=== PATIENT | male | born 1955 | race Caucasian/White ===

== ENCOUNTER → 2017-07-05 | Outpatient (CLI) | payer MEDICARE ==
[~2017-07-05] MED LIST: ATORVASTATIN CA10 M1 PO; BACTRIM DS 8001 TAB PO; BENADRYL 25MG C25 MG PO; CIPRO 500MG TA500 MG PO; CIPROFLOXACIN500 MG PO; CLONAZEPAM 1MG T1 MG PO; CLONAZEPAM0.5 M1 PO; CLONAZEPAM0.5 MG PO; EPI-PEN1 MG/M1 MR; HUMULIN 70100 UNITS/ SC; HYDROCODONE-APA1 TA1 PO; KEFLEX 500MG.500 MG PO; LISINOPRIL 5MG T5 MG NG; LISINOPRIL 5MG T5 MG PO; LOPRESSOR50 MG OR; LORTAB 480 ML480 ML PO; LORTAB 5/500 501 TAB GT; MAGMTHWSH PO; MEDROL 4MG. DOSE4 MG PO; METFORMIN 500M500 M1 PO; METFORMIN500 MG PO; MORPHINE 2MG.2 MG/ML IM; NORCO 325 MG-51 TAB PO; PERCOCET 5/3251 EACH PO; ROXANOL20 MG/ML SL; SEPTRA DS 800 M1 TAB PO; SERTRALINE 100100 MG PO; SERTRALINE100 MG PO; SYNTHROID 0.0.075 MG PO; SYNTHROID 0.1M0.1 MG PO; TESSALON PERLE100 M1 PO; ULTRAM 50 MG TA50 MG PO; VENTOLIN H0.09 MG/AC IH; VIBRA-TABS100 MG PO; ZANTAC 300300 M1 PO; ZITHROMAX Z PA250 MG PO; ZITHROMAX Z-PA250 M1 PO
[2017-07-05 16:00] LABS: HEMOGLOBIN 15.6 g/dL (14.1-18.0); LYMPH # 1.4 K/mm3 (0.7-4.5); LYMPH % 13.9 % (10-50)
[2017-07-05 16:28] LABS: AMPHETAMINES/METAMPHETAMINES NEGATIVE ng/mL (<1000)
[2017-07-05 17:19] LABS: BUN 15 mg/dL (7-18)
[2017-07-05 17:58] LABS: GFR (ESTIMATED) 76 ML/MIN (>60)
[2017-07-07 09:37] LABS: Microalbumin, Urine 41.1 ug/mL (Not Estab.)
== END ==
LOC: LAB 15:39
PROVIDERS: Nurse Practitioner Family
DX: E11.9 Type 2 diabetes mellitus without complications (principal); E78.5 Hyperlipidemia, unspecified; C14.0 Malignant neoplasm of pharynx, unspecified; Z79.899 Other long term (current) drug therapy
CPT/HCPCS: G0480

== ENCOUNTER 2017-10-28 10:40 | Observation (INO) | payer MEDICARE ==
[~2017-10-28] VITALS: Ht 175.3 cm; Wt 104.9 kg
[2017-10-28 10:41] VITALS: BP 204/119
[2017-10-28] MEDS ORDERED: LISINOPRIL2.5 M1 PO (10:45)
--- OUTSIDE RECORDS SUMMARY | 2017-10-28 11:02 | External Medical Summary Rpt | CCD ---
Author Author , SAMANTHA SINGH Address Unknown Phone Support Name Relationship Address Phone LANE, Next Of Kin Krystyna JARQUIN [address] [phone] [place] [address] Purpose Continuity of Care Document - 02-08-2013 through 2016 Allergies, Adverse Reactions, Alerts Type Drug Allergy Adverse Reaction to Substance Substance Reaction Severity Penicillin Unknown Unknown Penicillin V Unknown Unknown Medications Na ND Rx Da Fi Fi Am Da Di Ph RX Ph St me C No te ll ll ou ys ag ar # ys at rm s nt no ma ic us Or Da si cy ia de te s n re d Me 00 04 0 No th 00 -1 yl 90 0- Lo pr 19 20 ng ed 00 13 er ni 9 so Ac lo ti ne ve So d Rouse cc in a DI 00 04 0 No PH 40 -1 EN 92 0- Lo HY [address] 03 13 er AM 1 IN Ac E ti 50 ve MG /M L SY RN G CE 00 03 0 No FT 78 -1 RI 19 4- Lo AX 32 20 ng ON 89 13 er E 5 1 Ac GM ti ve AL LI 63 03 0 No DO 32 -1 CA 30 4- Lo IN 20 20 ng E 11 13 er HC 0 L Ac 1% ti ve AL Vital Signs 03-07-2013 06:08 Name Value Interpretat Reference Comment ion Range BP 103 mm[Hg] Diastolic BP Systolic 144 mm[Hg] Heart 75 /min Rate/Pulse O2% 96 % Respiratory 20 /min Rate 03-07-2013 04:59 Name Value Interpretat Reference Comment ion Range BP 81 mm[Hg] Diastolic BP Systolic 132 mm[Hg] Heart 86 /min Rate/Pulse O2% 92 % Respiratory 20 /min Rate 02-08-2013 22:39 Name Value Interpretat Reference Comment ion Range BP 88 mm[Hg] Diastolic BP Systolic 146 mm[Hg] Heart 91 /min Rate/Pulse O2% 95 % Respiratory 20 /min Rate Results Labs Lab Lab Date Result Refere Interp Status Commen Order Detail nces retati t Range on Hemoglobin A1c measurement (09-30-2017 11:00) Hemoglo 7.8 % 0.0-7.0 complet bin A1c 017 ed 11:00 Comment: < 6% NON-DIABETIC LEVEL Comment: < 7% CONTROLLED DIABETIC LEVEL Comment: > 8% POORLY CONTROLLED DIABETIC LEVEL Serum or plasma thyroid stimulating horm (09-30-2017 11:00) Serum = 3.36 0.358-3 complet or 017 uIU/ml .740 ed plasma 11:00 thyroid stimula ting horm Lipid profile (09-30-2017 11:00) Total = 147 < 200 complet cholest 017 mg/dL ed elisabeth 11:00 measure ment Serum = 16.8 0-40 complet or 017 ed plasma 11:00 cholest elisabeth in VLDL louann Serum = 84 30-200 complet or 017 mg/dL ed plasma 11:00 triglyc eride measure ment Serum = 83.2 0-130 complet or 017 mg/dL ed plasma 11:00 cholest elisabeth in LDL measu Serum = 47.0 40-60 complet or 017 MG/DL ed plasma 11:00 cholest elisabeth in HDL measu Serum or plasma free thyroxine (T4) louann (09-30-2017 11:00) Serum = 1.19 0.76-1. complet or 017 ng/dL 46 ed plasma 11:00 free thyroxi ne (T4) louann Comprehensive metabolic panel (09-30-2017 11:00) Serum = 9.9 8.5-10. complet or 017 mg/dL 1 ed plasma 11:00 calcium measure ment (mas Serum = 16 7-18 complet or 017 mg/dL ed plasma 11:00 urea nitroge n measure men Serum = 0.7 0.2-1.0 complet or 017 mg/dL ed plasma 11:00 total bilirub in measure m Serum = 4.1 3.4-5.0 complet or 017 gm/dL ed plasma 11:00 albumin measure ment (mas Serum = 1.1 1.1-1.8 complet or 017 ed plasma 11:00 albumin /globul in mass ra Serum = 77 46-116 complet or 017 U/L ed plasma 11:00 alkalin e phospha tase michelle Protein = 8.0 6.4-8.2 complet total 017 gm/dL ed ser/jovanny 11:00 s ALT = 34 12-78 complet (SGPT) 017 U/L ed ser/jovanny 11:00 s Serum = 21 15-37 complet or 017 U/L ed plasma 11:00 asparta te aminotr ansfera Serum = 133 136-145 complet sodium 017 mmoL/L ed measure 11:00 ment Serum = 4.9 3.5-5.1 complet potassi 017 mmoL/L ed um 11:00 measure ment Serum = 229 74-106 complet or 017 mg/dL ed plasma 11:00 glucose measure ment (mas Serum = 3.9 1.3-3.2 complet globuli 017 gm/dL ed n 11:00 measure ment (mass/v olume) Estimat = 62 >60 complet ed 017 ML/MIN ed glomeru 11:00 lar filtrat ion rate (GF Comment: REFERENCE RANGE: >60 ML/MIN/1.73 SQUARE METERS Comment: If this patient is -[place], then multiply the Comment: result by 1.210. Serum = 1.2 0.70-1. complet or 017 mg/dL 30 ed plasma 11:00 creatin ine measure ment ( Carbon = 20 21.0-32 complet dioxide 017 mmoL/L .0 ed 11:00 measure ment Serum = 101 98-107 complet or 017 mmoL/L ed plasma 11:00 chlorid e measure ment (mo CBC w auto diff (09-30-2017 11:00) Blood = 14.6 14.1-18 complet hemoglo 017 g/dL .0 ed bin 11:00 measure ment (mass/v olum Blood = 45.6 42.0-52 complet hematoc 017 % .0 ed rit 11:00 (volume fractio n) Granulo = 75.6 37.0-80 complet cyte 017 % .0 ed percent 11:00 age Blood = 8.4 1.3-8.0 complet granulo 017 K/mm3 ed cytes 11:00 automat ed count (numb Automat = 3.6 % 0.1-12. complet ed 017 0 ed blood 11:00 eosinop hils/10 0 leukocy t Automat = 0.4 0.0-0.4 complet ed 017 K/mm3 ed blood 11:00 eosinop hil count Baso % = 0.8 % 0.1-2.0 complet 017 ed 11:00 Automat = 0.1 0-0.2 complet ed 017 K/MM3 ed blood 11:00 basophi l count (count/ vo Blood = 11.1 4.8-10. complet leukocy 017 K/MM3 8 ed janna 11:00 count (number /volume ) Automat = 13.6 11.5-17 complet ed 017 % .5 ed erythro 11:00 cyte distrib ution width Red = 5.41 4.6-6.2 complet blood 017 M/mm3 ed cell 11:00 count Blood = 487 142-424 complet platele 017 K/mm3 ed t count 11:00 Automat = 8.6 7.4-10. complet ed 017 fl 4 ed blood 11:00 platele t mean volume michelle [place] % = 8.8 % 1.7-9.3 complet 017 ed 11:00 Absolut = 1.0 0.1-1.0 complet e 017 K/mm3 ed monocyt 11:00 e count Automat = 84.2 82.2-97 complet ed 017 fl .8 ed erythro 11:00 cyte mean corpusc ular v Automat = 32.1 31.8-35 complet ed 017 g/dl .4 ed erythro 11:00 cyte mean corpusc ular h Mean = 27.0 27-31.2 complet corpusc 017 pg ed ular 11:00 hemoglo bin (MCH) determ Lymphoc = 11.2 10-50 complet yte 017 % ed count, 11:00 blood, automat ed Absolut = 1.2 0.7-4.5 complet e 017 K/mm3 ed lymphoc 11:00 yte count Hemoglobin A1c in Blood (09-30-2017 11:00) Hemoglo 7.8 % 0.0% High complet bin A1c 017 - ed in 11:00 7.0% Blood Hemoglobin A1c in Blood (07-05-2017 10:40) Hemoglo 7.1 % 0.0% High complet bin A1c 017 - ed in 10:40 7.0% Blood Drugs identified in Urine by Screen method (07-05-2017 10:40) Ampheta NEGATIV <1000 complet mine 017 E ed [Presen 10:40 ce] in Urine by Screen method 11-Hydr NEGATIV <50 complet oxy 017 E ed delta-9 10:40 tetrahy drocann abinol [Presen ce] in Unspeci fied specime n COMPREHENSIVE METABOLIC PANEL (03-07-2013 04:15) Glucose 396 74-106 complet 013 mg/dL ed Bld-mCn 04:15 c BUN 24 7-18 complet Bld-mCn 013 mg/dL ed c 04:15 Creat 1.3 0.8-1.3 complet SerPl-m 013 mg/dL ed Cnc 04:15 ESTIMAT 100 50-200 complet ED 013 ML/MIN ed CREATIN 04:15 INE CLEARAN CE GFR 57 Greater complet (ESTIMA 013 ML/MIN than ed DESMOND) 04:15 60 Sodium 137 136-145 complet SerPl-s 013 mmoL/L ed Cnc 04:15 Potassi 4.1 3.5-5.1 complet um 013 mmoL/L ed SerPl-s 04:15 Cnc Chlorid 98 98-107 complet e 013 mmoL/L ed SerPl-s 04:15 Cnc CO2 27 21.0-32 complet SerPl-s 013 mmoL/L .0 ed Cnc 04:15 Calcium 04-10-2 9.4 8.5-10. complet 013 mg/dL 1 ed SerPl-m 04:15 Cnc Prot 10-2 7.4 6.4-8.2 complet SerPl-m 013 gm/dL ed Cnc 04:15 Albumin 0410-2 3.9 3.4-5.0 complet 013 gm/dL ed SerPl-m 04:15 Cnc Globuli 10-2 3.5 1.3-3.2 complet n 013 gm/dL ed Ser-mCn 04:15 c Albumin 10-2 1.1 UNK 1.1-1.8 complet /Glob 013 ed SerPl-m 04:15 Rto Bilirub 10-2 0.4 0.2-1.0 complet 013 mg/dL ed SerPl-m 04:15 Cnc AST 10-2 33 U/L 15-37 complet SerPl-c 013 ed Cnc 04:15 ALT 10-2 64 U/L 30-65 complet SerPl-c 013 ed Cnc 04:15 ALP 10-2 119 U/L 50-136 complet SerPl-c 013 ed Cnc 04:15 CBC with AUTO DIFF (03-07-2013 04:15) WBC # -10-2 10.1 4.8-10. complet Bld 013 K/MM3 8 ed Auto 04:15 RBC # 0410-2 5.76 4.6-6.2 complet Bld 013 M/mm3 ed Auto 04:15 Hgb 10-2 15.8 14.1-18 complet Bld-mCn 013 g/dL .0 ed c 04:15 Hct Fr 10-2 48.4 % 42.0-52 complet Bld 013 .0 ed 04:15 MCV RBC 10-2 84.1 fl 82.2-97 complet 013 .8 ed 04:15 MCH RBC 04-10-2 27.5 pg 27-31.2 complet Qn 013 ed Auto 04:15 MEAN 0410-2 32.7 31.8-35 complet CORPUSC 013 g/dl .4 ed ULAR 04:15 HGB CONC RDW RBC 10-2 14.0 % 11.5-17 complet Auto 013 .5 ed 04:15 Platele -10-2 444 142-424 complet t Bld 013 K/mm3 ed Ql 04:15 Manual MEAN 10-2 6.8 fl 7.4-10. complet PLATELE 013 4 ed T 04:15 VOLUME Granulo -10-2 60.2 % 37.0-80 complet cytes 013 .0 ed Fr Bld 04:15 Auto LYMPH % 10-2 28.9 % 10-50 complet 013 ed 04:15 Monocyt -10-2 8.8 % 1.7-9.3 complet es Fr 013 ed Bld 04:15 Auto Eosinop -10-2 1.7 % 0.1-12. complet hil Fr 013 0 ed Bld 04:15 Auto Basophi 10-2 0.4 % 0.1-2.0 complet ls Fr 013 ed Bld 04:15 Auto Granulo -10-2 6.1 1.3-8.0 complet cytes # 013 K/mm3 ed Bld 04:15 Auto Lymphoc 10-2 2.9 0.7-4.5 complet ytes Fr 013 K/mm3 ed Bld 04:15 Auto Monocyt -10-2 0.9 0.1-1.0 complet es # 013 K/mm3 ed Bld 04:15 Auto Eosinop -10-2 0.2 0.0-0.4 complet hil # 013 K/mm3 ed Bld 04:15 Auto Basophi -10-2 0.0 0-0.2 complet ls # 013 K/MM3 ed Bld 04:15 Auto Encounters Encounter Start End Date Code Location Performer Type Date Emergency MALIKA Mora MD (ER) 3 04:20 3 06:27 [facility] Emergency MALIKA Mora MD (ER) 3 21:38 3 22:39 [facility]
--- OUTSIDE RECORDS SUMMARY | 2017-10-28 11:02 | External Medical Summary Rpt | CCD ---
Author Author , SAMANTHA SINGH Address Unknown Phone [email or web address] Support Name Relationship Address Phone LANE, Next Of Kin Krystyna JARQUIN [address] [phone] [place] [address] Purpose Continuity of Care Document - 02-08-2013 [...] SQUARE METERS Comment: If this patient is -[place], then multiply the Comment: result by 1.210. [...] blood 11:00 platele t mean volume michelle Sanders % = 8.8 % 1.7-9.3 complet 017 [...] Mora MD (ER) 3 04:20 3 06:27 [facility] Emergency MALIKA Mora MD (ER) 3 21:38 3 22:39 [facility]
--- OUTSIDE RECORDS SUMMARY | 2017-10-28 11:02 | External Medical Summary Rpt | CCD ---
Author Author [employer] Organization [employer] Address Unknown Phone Unavailable Purpose Continuity of Care Document - through 2016
--- OUTSIDE RECORDS SUMMARY | 2017-10-28 11:02 | External Medical Summary Rpt | CCD ---
Author Author , SAMANTHA SINGH Address Unknown Phone [email or web address] Immunization Name Date Rout CVX Reac Dose Comm Prov Is Faci e tion ent ider Refu lity Give sed n Infl 10-0 Intr 150 0.5 Hist GSHA No GSHA uenz 6-20 amus mL oric NE NE a 17 cula al Quad r Info Inj rmat ion - Sour ce Unsp ecif ied
--- OUTSIDE RECORDS SUMMARY | 2017-10-28 11:02 | External Medical Summary Rpt | CCD ---
Author Author , SAMANTHA SINGH Address Unknown Phone [email or web address] Immunization Name Date Rout CVX Reac Dose Comm Prov Is Faci e tion ent ider Refu lity Give sed n Infl 10-0 Intr 150 0.5 Hist GSHA No GSHA uenz 6-20 amus mL oric NE NE a 17 cula al Quad r Info Inj rmat ion - Sour ce Unsp ecif ied
--- OUTSIDE RECORDS SUMMARY | 2017-10-28 11:03 | External Medical Summary Rpt ---
Author Author SAMANTHA Mendieta, [employer] Organization [employer] Address Unknown Phone Unavailable Results Hemoglobin A1c in Blood Observa Value Referen Units Interpr Notes Date tion ce etation Range Hemoglo 7.8 0.0 - % High < 6% Sep 30 bin A1c 7.0 NON-BRAXTON 2017 in [facility] 11:00 Blood LEVEL< AM 7% CONTROL LED DIABETI C LEVEL> 8% POORLY CONTROL LED DIABETI C LEVEL Comprehensive metabolic 2000 panel in Serum or Plasma Observa Value Referen Units Interpr Notes Date tion ce etation Range Albumin/G 1.1 - 1.8 No Normal No Sep 30 lobulin informati informati 2016 [Mass on in on in 11:00 AM ratio] in source source Serum or data data Plasma Albumin 3.4 - 5.0 gm/dL Normal No Sep 30 [Mass/vol informati 2016 ume] in on in 11:00 AM Serum or source Plasma data Alkaline 46 - 116 U/L Normal No Sep 30 phosphata informati 2016 se on in 11:00 AM [Enzymati source c data activity/ volume] in Serum or Plasma Bilirubin 0.2 - 1.0 mg/dL Normal No Sep 30 .total informati 2016 [Mass/vol on in 11:00 AM ume] in source Serum or data Plasma Urea 7 - 18 mg/dL Normal No Sep 30 nitrogen informati 2016 [Mass/vol on in 11:00 AM ume] in source Serum or data Plasma Calcium 8.5 - mg/dL Normal No Sep 30 [Mass/vol 10.1 informati 2016 ume] in on in 11:00 AM Serum or source Plasma data Chloride 98 - 107 mmoL/L Normal No Sep 30 [Moles/vo informati 2017 lume] in on in 11:00 AM Serum or source Plasma data Carbon 21.0 - mmoL/L Low No Sep 30 dioxide, 32.0 informati 2016 total on in 11:00 AM [Moles/vo source lume] in data Serum or Plasma Creatinin 0.70 - mg/dL Normal No Sep 30 e 1.30 inform2016 [Mass/vol on in 11:00 AM ume] in source Serum or data Plasma Estimated >60 ML/MIN No REFERENCE Sep 3 informati RANGE: 2017 glomerula on in >60 11:00 AM r source ML/MIN/1. filtratio data 73 SQUARE n rate METERSIf (GF this patient is -A merican, then multiply theresult by 1.210. Globulin 1.3 - 3.2 gm/dL High No Sep 30 [Mass/vol informati 2016 ume] in on in 11:00 AM Serum source data Glucose 74 - 106 mg/dL High No Sep 30 [Mass/vol informati 2016 ume] in on in 11:00 AM Serum or source Plasma data Potassium 3.5 - 5.1 mmoL/L Normal No Sep 30 inform2016 [Moles/vo on in 11:00 AM lume] in source Serum or data Plasma Sodium 136 - 145 mmoL/L Low No Sep 30 [Moles/vo informati 2016 lume] in on in 11:00 AM Serum or source Plasma data Aspartate 15 - 37 U/L Normal No Sep 302016 aminotran on in 11:00 AM sferase source [Enzymati data c activity/ volume] in Serum or Plasma Alanine 12 - 78 U/L Normal No Sep 30 aminotran 2016 sferase on in 11:00 AM [Enzymati source c data activity/ volume] in Serum or Plasma Protein 6.4 - 8.2 gm/dL Normal No Sep 30 [Mass/vol informati 2016 ume] in on in 11:00 AM Serum or source Plasma data Thyroxine (T4) free [Mass/volume] in Serum or Plasma Observa Value Referen Units Interpr Notes Date tion ce etation Range Thyroxine 0.76 - ng/dL Normal No Sep 30 (T4) 1.46 informati 2017 free on in 11:00 AM [Mass/vol source ume] in data Serum or Plasma Lipid 1996 panel in Serum or Plasma Observa Value Referen Units Interpr Notes Date tion ce etation Range Cholester < 200 mg/dL No No Sep 3 ol informati informati 2016 [Moles/vo on in on in 11:00 AM lume] in source source Unspecifi data data ed specimen Cholester 40 - 60 MG/DL Normal No Nov 3 ol in HDL informati 2017 on in 11:00 AM [Mass/vol source ume] in data Serum or Plasma Cholester 0 - 130 mg/dL Normal No Sep 3 ol in LDL 2016 on in 11:00 AM [Mass/vol source ume] in data Serum or Plasma by calculati on Triglycer 30 - 200 mg/dL Normal No Sep 30 selma 2016 [Moles/vo on in 11:00 AM lume] in source Serum or data Plasma Cholester 0 - 40 No Normal No Sep 3 ol in informati 2017 VLDL on in on in 11:00 AM [Mass/vol source source ume] in data data Serum or Plasma Thyrotropin [Units/volume] in Serum or Plasma Observa Value Referen Units Interpr Notes Date tion ce etation Range Thyrotrop 0.358 - uIU/ml Normal No Sep 3 in 3.740 2016 [Units/vo on in 11:00 AM lume] in source Serum or data Plasma CBC W Auto Differential panel in Blood Observa Value Referen Units Interpr Notes Date tion ce etation Range Basophils 0 - 0.2 K/MM3 Normal No Sep 3 2016 [#/volume on in 11:00 AM ] in source Blood by data Automated count Basophils 0.1 - 2.0 % Normal No Sep 3 /100 2016 leukocyte on in 11:00 AM s in source Blood by data Automated count Eosinophi 0.0 - 0.4 K/mm3 Normal No Sep 30 ls 2016 [#/volume on in 11:00 AM ] in source Blood by data Automated count Eosinophi 0.1 - % Normal No Sep 30 ls/100 12.0 2016 leukocyte on in 11:00 AM s in source Blood by data Automated count Granulocy 1.3 - 8.0 K/mm3 High No Sep 3 janna 2016 [#/volume on in 11:00 AM ] in source Blood by data Automated count Granulocy 37.0 - % Normal No Sep 30 janna/100 80.0 2016 leukocyte on in 11:00 AM s in source Blood by data Automated count Hematocri 42.0 - % Normal No Sep 30 t [Volume 52.0 2016 on in 11:00 AM Fraction] source of Blood data Hemoglobi 14.1 - g/dL Normal No Nov 3 n 18.0 inform2016 [Mass/vol on in 11:00 AM ume] in source Blood data Lymphocyt 0.7 - 4.5 K/mm3 Normal No Sep 3 es 2016 [#/volume on in 11:00 AM ] in source Unspecifi data ed specimen by Automated count Lymphocyt 10 - 50 % Normal No Sep 3 es 2016 [#/volume on in 11:00 AM ] in source Unspecifi data ed specimen by Automated count Erythrocy 27 - 31.2 pg Normal No Sep 3 te mean 2016 corpuscul on in 11:00 AM ar source hemoglobi data n [Entitic mass] Erythrocy 31.8 - g/dl Normal No Sep 3 te mean 35.4 2016 corpuscul on in 11:00 AM ar source hemoglobi data n concentra tion [Mass/vol ume] by Automated count Erythrocy 82.2 - fl Normal No Sep 3 te mean 97.8 2016 corpuscul on in 11:00 AM ar volume source [Entitic data volume] by Automated count Monocytes 0.1 - 1.0 K/mm3 Normal No Sep 3 2016 [#/volume on in 11:00 AM ] in source Blood by data Automated count Monocytes 1.7 - 9.3 % Normal No Sep 3 /100 2016 leukocyte on in 11:00 AM s in source Blood by data Automated count Platelet 7.4 - fl Normal No Sep 3 mean 10.4 2016 volume on in 11:00 AM [Entitic source volume] data in Blood by Automated count Platelets 142 - 424 K/mm3 High No Sep 3 2016 [#/volume on in 11:00 AM ] in source Blood data Erythrocy 4.6 - 6.2 M/mm3 Normal No Sep 3 janna 2016 [#/volume on in 11:00 AM ] in source Amniotic data fluid Erythrocy 11.5 - % Normal No Sep 3 te 17.5 2016 distribut on in 11:00 AM ion width source [Entitic data volume] by Automated count Leukocyte 4.8 - K/MM3 High No Sep 3 s 10.8 inform2016 [#/volume on in 11:00 AM ] in source Blood data Benzodiazepines Confirm, Urine Observa Value Referen Units Interpr Notes Date tion ce etation Range Benzodi Positiv Cutoff= ng/mL Abnorma No Jul 05 azepine e 100 l informa 2017 s tion in 10:40 [Presen source AM ce] in data Urine Alprazo Negativ Cutoff= No No No Jul 05 yates e 100 informa informa informa 2016 [Presen tion in tion in tion in 10:40 ce] in source source source AM Urine data data data Clonaze Positiv . No Abnorma No Jul 05 alona e informa l informa 2016 [Presen tion in tion in 10:40 ce] in source source AM Urine data data Clonazepa Cutoff=10 ng/mL No Clonazepa Jul 05 m 0 informati m 2017 [Mass/vol on in detected; 10:40 AM ume] in source this Urine by data finding Confirm is method consisten t with use ofmedicat ions that include Klonopin, Rivotril, or generic formulati ons.Drugs listed are represent ative of common sources of the compoundd etected and are not intended to include all possible sources. Temazep Negativ Cutoff= No No No Jul 05 am e 100 informa informa informa 2017 [Presen tion in tion in tion in 10:40 ce] in source source source AM Urine data data data by Confirm method Triazol Negativ Cutoff= No No No Jul 05 am e 100 informa informa informa 2017 [Presen tion in tion in tion in 10:40 ce] in source source source AM Urine data data data Midazol Negativ Cutoff= No No No Jul 05 am e 100 informa informa informa 2017 [Presen tion in tion in tion in 10:40 ce] in source source source AM Urine data data data by Confirm method Nordiaz Negativ Cutoff= No No No Jul 05 epam e 100 informa informa informa 2017 [Presen tion in tion in tion in 10:40 ce] in source source source AM Urine data data data Please Comment . No No Drug-te Jul 05 Note: informa informa st 2017 tion in tion in results 10:40 source source should AM data data be interpr eted in the context of clinica linform ation. Patient metabol ic variabl es, specifi c drug application chemist ry, andspec imen charact eristic s can affect test outcome . Technic alconsu ltation is availab le if a test result is inconsi stent with anexpec edwin outcome . (email- sherry alegre @[email or web address] or call [employer]-fr [phone] )Drug brands, if listed herein, are tradema rks of their respect iveowne rs.Perf ormed at: - [facility] [id number] [facility], [place], [place] [id number] Directo r: Noé Patel MD, Phone: [phone] Oxazepa Negativ Cutoff= No No No Jul 05 m e 100 informa informa informa 2017 [Presen tion in tion in tion in 10:40 ce] in source source source AM Urine data data data Fluraze Negativ Cutoff= No No No Jul 05 alona e 100 informa informa informa 2017 [Presen tion in tion in tion in 10:40 ce] in source source source AM Urine data data data Lorazep Negativ Cutoff= No No No Jul 05 am e 100 informa informa informa 2017 [Presen tion in tion in tion in 10:40 ce] in source source source AM Urine data data data Microalb/Creat Ratio, Randm Ur Observa Value Referen Units Interpr Notes Date tion ce etation Range Microalbu Not ug/mL No No Jul 05 min Estab. informati informati 2017 [Mass/vol on in on in 10:40 AM ume] in source source Urine data data Albumin/C 0.0 - No No INFCE Jul 05 reatinine 30.0 informati informati Result 2017 [Mass on in on in Units: 10:40 AM ratio] in source source mg/g Urine data data creatPerf ormed at: CB - [facility] [id number] [place], [place] [id number] Pricing Lead: Brian Paris PhD, Phone: [phone] Creatinin Not mg/dL No No Jul 05 e Estab. informati informati 2017 [Mass/vol on in on in 10:40 AM ume] in source source Urine data data Comprehensive metabolic 2000 panel in Serum or Plasma Observa Value Referen Units Interpr Notes Date tion ce etation Range Albumin/G 1.1 - 1.8 No Low No Jul 05 lobulin informati informati 2016 [Mass on in on in 10:40 AM ratio] in source source Serum or data data Plasma Albumin 3.4 - 5.0 gm/dL Normal No Jul 05 [Mass/vol informati 2016 ume] in on in 10:40 AM Serum or source Plasma data Alkaline 46 - 116 U/L Normal No Jul 05 phosphata informati 2016 se on in 10:40 AM [Enzymati source c data activity/ volume] in Serum or Plasma Bilirubin 0.2 - 1.0 mg/dL Normal No Jul 05 .total informati 2016 [Mass/vol on in 10:40 AM ume] in source Serum or data Plasma Urea 7 - 18 mg/dL Normal No Jul 05 nitrogen informati 2016 [Mass/vol on in 10:40 AM ume] in source Serum or data Plasma Calcium 8.5 - mg/dL Normal No Jul 05 [Mass/vol 10.1 informati 2016 ume] in on in 10:40 AM Serum or source Plasma data Chloride 98 - 107 mmoL/L Normal No Jul 05 [Moles/vo informati 2016 lume] in on in 10:40 AM Serum or source Plasma data Carbon 21.0 - mmoL/L Normal No Jul 05 dioxide, 32.0 informati 2017 total on in 10:40 AM [Moles/vo source lume] in data Serum or Plasma Creatinin 0.70 - mg/dL Normal No Jul 05 e 1.30 informati 2016 [Mass/vol on in 10:40 AM ume] in source Serum or data Plasma Estimated >60 ML/MIN No REFERENCE Jul 05 informati RANGE: 2017 glomerula on in >60 10:40 AM r source ML/MIN/1. filtratio data 73 SQUARE n rate METERSIf (GF this patient is -A merican, then multiply theresult by 1.210. Globulin 1.3 - 3.2 gm/dL High No Jul 05 [Mass/vol informati 2017 ume] in on in 10:40 AM Serum source data Glucose 74 - 106 mg/dL High No Jul 05 [Mass/vol informati 2017 ume] in on in 10:40 AM Serum or source Plasma data Potassium 3.5 - 5.1 mmoL/L Normal No Jul 05 informati 2017 [Moles/vo on in 10:40 AM lume] in source Serum or data Plasma Sodium 136 - 145 mmoL/L Normal No Jul 05 [Moles/vo 2016 lume] in on in 10:40 AM Serum or source Plasma data Aspartate 15 - 37 U/L Normal No Jul 052016 aminotran on in 10:40 AM sferase source [Enzymati data c activity/ volume] in Serum or Plasma Alanine 12 - 78 U/L Normal No Jul 05 aminotran 2016 sferase on in 10:40 AM [Enzymati source c data activity/ volume] in Serum or Plasma Protein 6.4 - 8.2 gm/dL High No Jul 05 [Mass/vol informati 2016 ume] in on in 10:40 AM Serum or source Plasma data Thyroxine (T4) free [Mass/volume] in Serum or Plasma Observa Value Referen Units Interpr Notes Date tion ce etation Range Thyroxine 0.76 - ng/dL Normal No Jul 05 (T4) 1.46 2016 free on in 10:40 AM [Mass/vol source ume] in data Serum or Plasma Lipid 1996 panel in Serum or Plasma Observa Value Referen Units Interpr Notes Date tion ce etation Range Cholester < 200 mg/dL No No Jul 05 ol ati 2016 [Moles/vo on in on in 10:40 AM lume] in source source Unspecifi data data ed specimen Cholester 40 - 60 MG/DL Normal No Jul 05 ol in HDL 2016 on in 10:40 AM [Mass/vol source ume] in data Serum or Plasma Cholester 0 - 130 mg/dL Normal No Jul 05 ol in LDL 2016 on in 10:40 AM [Mass/vol source ume] in data Serum or Plasma by calculati on Triglycer 30 - 200 mg/dL Normal No Jul 05 selma 2016 [Moles/vo on in 10:40 AM lume] in source Serum or data Plasma Cholester 0 - 40 No Normal No Jul 05 ol in informati 2016 VLDL on in on in 10:40 AM [Mass/vol source source ume] in data data Serum or Plasma Thyrotropin [Units/volume] in Serum or Plasma Observa Value Referen Units Interpr Notes Date tion ce etation Range Thyrotrop 0.358 - uIU/ml Normal No Jul 05 in 3.740 2016 [Units/vo on in 10:40 AM lume] in source Serum or data Plasma Hemoglobin A1c in Blood Observa Value Referen Units Interpr Notes Date tion ce etation Range Hemoglo 7.1 0.0 - % High < 6% Jul 05 bin A1c 7.0 [facility]XTON [facility] Blood LEVEL< AM 7% CONTROL LED DIABETI C LEVEL> 8% POORLY CONTROL LED DIABETI C LEVEL Drugs identified in Urine by Screen method Observa Value Referen Units Interpr Notes Date tion ce etation Range Positive urine drug screen samples are stored for 7 days. Contact the Lab if confirmation of positives is needed. Ampheta NEGATIV <1000 ng/mL No No Jul 05 mine E informa informa 2017 [Presen tion in tion in 10:40 ce] in source source AM Urine data data by Screen method Barbitura <200 ng/mL No No Jul 05 janna informati informati 2016 [Mass/vol on in on in 10:40 AM ume] in source source Urine by data data Screen method Benzodiaz 200 ng/mL ng/mL High This is Jul 05 epines an 2017 [Mass/vol UNCONFIRM 10:40 AM ume] in ED Serum or result. Plasma by This Screen result is method for medicalpu rposes and/or treatment only. Cocaine <300 ng/g No No Jul 05 [Mass/vol informati informati 2016 ume] in on in on in 10:40 AM Unspecifi source source ed data data specimen Methadone <300 ng/mL No No Jul 05 informati informati 2016 [Mass/vol on in on in 10:40 AM ume] in source source Unspecifi data data ed specimen Opiates <300 ng/mL No No Jul 05 [Mass/vol informati informati 2016 ume] in on in on in 10:40 AM Unspecifi source source ed data data specimen Phencycli <25 ng/mL No No Jul 05 dine informati informati 2017 [Mass/vol on in on in 10:40 AM ume] in source source Unspecifi data data ed specimen 11-Hydr NEGATIV <50 ng/mL No No Jul 05 oxy E informa informa 2017 delta-9 tion in tion in 10:40 source source AM tetrahy data data drocann abinol [Presen ce] in Unspeci fied specime n CBC W Auto Differential panel in Blood Observa Value Referen Units Interpr Notes Date tion ce etation Range Basophils 0 - 0.2 K/MM3 Normal No Jul 05 inform2016 [#/volume on in 10:40 AM ] in source Blood by data Automated count Basophils 0.1 - 2.0 % Normal No Jul 05 /100 inform2016 leukocyte on in 10:40 AM s in source Blood by data Automated count Eosinophi 0.0 - 0.4 K/mm3 High No Jul 05 ls 2016 [#/volume on in 10:40 AM ] in source Blood by data Automated count Eosinophi 0.1 - % Normal No Jul 05 ls/100 12.0 inform2016 leukocyte on in 10:40 AM s in source Blood by data Automated count Granulocy 1.3 - 8.0 K/mm3 Normal No Jul 05 janna 2016 [#/volume on in 10:40 AM ] in source Blood by data Automated count Granulocy 37.0 - % Normal No Jul 05 janna/100 80.0 inform2016 leukocyte on in 10:40 AM s in source Blood by data Automated count Hematocri 42.0 - % Normal No Jul 05 t [Volume 52.0 2016 on in 10:40 AM Fraction] source of Blood data Hemoglobi 14.1 - g/dL Normal No Jul 05 n 18.0 inform2016 [Mass/vol on in 10:40 AM ume] in source Blood data Lymphocyt 0.7 - 4.5 K/mm3 Normal No Jul 05 es 2016 [#/volume on in 10:40 AM ] in source Unspecifi data ed specimen by Automated count Lymphocyt 10 - 50 % Normal No Jul 05 es 2016 [#/volume on in 10:40 AM ] in source Unspecifi data ed specimen by Automated count Erythrocy 27 - 31.2 pg Normal No Jul 05 te mean 2016 corpuscul on in 10:40 AM ar source hemoglobi data n [Entitic mass] Erythrocy 31.8 - g/dl Low No Jul 05 te mean 35.4 2016 corpuscul on in 10:40 AM ar source hemoglobi data n concentra tion [Mass/vol ume] by Automated count Erythrocy 82.2 - fl Normal No Jul 05 te mean 97.8 2016 corpuscul on in 10:40 AM ar volume source [Entitic data volume] by Automated count Monocytes 0.1 - 1.0 K/mm3 Normal No Jul 05 inform2016 [#/volume on in 10:40 AM ] in source Blood by data Automated count Monocytes 1.7 - 9.3 % Normal No Jul 05 /100 2016 leukocyte on in 10:40 AM s in source Blood by data Automated count Platelet 7.4 - fl Normal Jul 05 mean 10.4 2016 volume on in 10:40 AM [Entitic source volume] data in Blood by Automated count Platelets 142 - 424 K/mm3 High No Jul 052016 [#/volume on in 10:40 AM ] in source Blood data Erythrocy 4.6 - 6.2 M/mm3 Normal No Jul 05 janna 2016 [#/volume on in 10:40 AM ] in source Amniotic data fluid Erythrocy 11.5 - % Normal No Jul 05 te 17.5 2016 distribut on in 10:40 AM ion width source [Entitic data volume] by Automated count Leukocyte 4.8 - K/MM3 Normal No Jul 05 s 10.8 2016 [#/volume on in 10:40 AM ] in source Blood data
--- OUTSIDE RECORDS SUMMARY | 2017-10-28 11:03 | External Medical Summary Rpt ---
[...] metabol ic variabl es, specifi c drug chemistry instructor ry, andspec imen charact eristic s can affect test outcome . Technic alconsu ltation is availab le if a test result is inconsi stent with anexpec edwin outcome . (email- sherry alegre @[employer] or call [employer]-fr [phone] )Drug brands, if listed herein, are tradema rks of their respect iveowne rs.Perf ormed at: - [facility] [id number] [facility], [place], [place] [id number]Lab Directo r: Noé Patel MD, Phone: [phone] Oxazepa Negativ Cutoff= No No No Jul [...] data creatPerf ormed at: CB - [facility] [id number] [place], [place] [id number] Attache: Brian Paris PhD, Phone: [phone] Creatinin Not mg/dL No No Jul [...] - 200 mg/dL Normal No Jul 05 selam 2016 [Moles/vo on in 10:40 AM lume] [...] 05 bin A1c 7.0 NON-BRAXTON [facility] Blood LEVEL< AM 7% CONTROL LED [...]
[2017-10-28 11:05] LABS: HEMOGLOBIN 15.3 g/dL (14.1-18.0); LYMPH # 1.6 K/mm3 (0.7-4.5); LYMPH % 18.5 % (10-50)
--- NOTE | 2017-10-28 11:22 | Emergency Room Report ---
History of Present Illness Time Seen by [address] Presenting Problem in Triage Pt arrived:Walked Presenting Problem:PT WAS BEING SEEN AT HIS PCP WHEN HE STARTED HAVING CHEST PAIN/PRESSURE. PT ALSO HYPERTENSIVE. 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 N Clinical Suspician of Infection? N Mental Status: 1 - Regular (Normal Baseline) Sepsis Risk:Low Sepsis Risk Have you (or family members/close friends) recently traveled outside the [place]? N If Yes, where/when: Have you had exposure to infectious disease within the past month? N TB? Other? Specify: Patient did not have his antihypertensive meds today as was NPO for labs at [facility] office. He presented to [facility] office and when getting up on exam table had mild chest pain and was noted to be hypertensive. He was sent to the ED for further evaluation and management. Pain is exertional, 3/10, nonradiating, no acute SOB, reports some indigestion, no diaphoresis, no v/d, no new cough. Had a tracheostomy due to throat cancer in the past. He is verbal but nonvocal. ALLERGIES Coded Allergies: Penicillins (05/05/16) penicillin V (05/05/16) Home Medications Active Scripts Epinephrine (Epipen 2-Favio) 1 MG MR PRN PRN allergic reaction. #1 KIT Ref 1 Prov: 06/17/15 Reported Medications Levothyroxine Sodium (Synthroid 0.1MG) 0.1 MG PO DAILY INSUL REG 30%ISOPHAN 70% HUMAN (Humulin 70-30 Vial) 10 UNITS SC QHS Clonazepam (Clonazepam 0.5MG) 0.5 MG PO DAILY #45 Atorvastatin Calcium 10 MG PO QHS #30 Sertraline Hydrochloride (Sertraline 100MG) 100 MG PO DAILY #30 Lisinopril 2.5 MG PO DAILY #30 Metformin HCl (Metformin) 500 MG PO BID #60 History Medical History General CAD? No Angina: Yes CT: Yes Hypertension? Yes Hyperlipidemia? No CHF? No DVT? No PE? No COPD? Yes Asthma? No Anemia? No GERD? No Gastric ulcers? No GI Bleed? No Hernia? Yes Thyroid Problems? No Hypothyroidism? No CVA? No Seizures? No Diabetes? Yes Insulin Dependent: Yes Insulin Pump: No Home FSBS? Yes Renal Insuffiency? No End Stage Renal Disease? No UTI? No Stones? No BPH? No GB Disease: No Nephritic Syndrome? No Asplenia? No Hepatitis? No Sickle Cell Disease? No Arthritis? No Migraines? No Cataracts? No Glaucoma? No MRSA? No HIV? No TB? No Anxiety? No Depression? No Cancer? 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 Immunization Hx DT/Tetanus Unknown Flu 2012-14FSN Pneumonia Received In Past Surgical Hx Previous Surgery?Y TUBES IN EARS TRACHEOSTOMY COLOSTOMY FEEDING TUBE PLACEMENT PORTACATH - REMOVED RECONSTRUCTION ON THROAT REVERSAL OF COLOSTOMY 31 TEETH EXTRACTED TRACH PLACED Family History Family Hx Diabetes Yes CAD Yes Hypertension Yes Hyperlipidemia Yes Cancer No TB No Social History Smoking Hx Smoker: Never Smoker Tobacco: No Alcohol Alcohol: No Review of Systems All Other Systems Reviewed and Negative Cardiovascular see HPI Gastrointestinal see HPI Psychiatric/Neurological anxiety (under increased stress) Physical Exam Vital Signs Vital Signs Date Time Temp Pulse Resp B/P Pulse O2 O2 Flow FiO2 Ox Delivery Rate 10/28 1159 84 16 141/99 98 10/28 1041 98.5 85 16 204/119 98 General Appearance normal appearance, WD/WN, no apparent distress Eye Exam - bilateral eye normal exam, bilateral eye PERRL, bilateral eye EOMI Ear, Nose, Throat hearing grossly normal (tracheostomy) Neck normal inspection (trach) Respiratory Status Yes: trachea midline, chest symmetrical, non tender chest. No: respiratory distress, tender on palpation, use of accessory muscles, pain on inspiration, pain on expiration, productive cough, non productive cough. Lung Sounds bilateral: normal breath sounds, lungs clear. Cardiovascular normal exam, regular rate/rhythm, no peripheral edema, no gallop, no JVD, no murmur, no rub, normal peripheral pulses Gastrointestinal normal bowel sounds, normal exam, non tender, soft, no organomegaly, no pulsatile mass, no guarding, no rebound Extremities non-tender, normal range of motion, normal inspection, normal capillary refill, no calf tenderness, no pedal edema Strength 5 Upper Ext (L), 5 Upper Ext (R), 5 Lower Ext (L), 5 Lower Ext (R) Neurologic alert, normal exam, no motor/sensory deficits, oriented x 3 Glascow Coma Scale Glascow Coma Scale Response Value EYE response: 4 Spontaneously 4 MOTOR response: 6 OBEYS 6 VERBAL response: 5 Oriented & Converses 5 Total 15 Skin intact, warm/dry, pallor Medical Decision Making LABS/Meds/Orders Pt receiving controlled substance in ED? No Results/Orders Laboratory Tests 10/28/17 1050: Sodium 139, Potassium 4.7, Chloride 104, Carbon Dioxide 28, BUN 17, Creatinine 1.1, Estimated Creat Clear 96, Estimated GFR (MDRD) 68, Glucose 156 H, Calcium 9.4, Total Bilirubin 0.5, AST 24, ALT 35, Alkaline Phosphatase 80, Creatine Kinase 115, CK-MB (CK-2) Rel Index 0.5, CK and CKMB Interp 0.6, Troponin I < 0.02, Total Protein 8.4 H, Albumin 4.1, Globulin 4.3 H, Albumin/Globulin Ratio 1.0 L, WBC 8.3, RBC 5.59, Hgb 15.3, Hct 47.5, MCV 85.1, RDW 14.1, Plt Count 470 H, MPV 6.8 L, Gran % 66.4, Gran # 5.5, Lymphocytes % 18.5, Monocytes % 8.1, Eosinophils % 6.1, Basophils % 0.8, Lymphocytes # 1.6, Monocytes # 0.7, Eosinophils # 0.5 H, Basophils # 0.1, PUBS MCHC 32.1, MCH 27.4 Current Medication Orders Sig/Yoli Start time Last Medication Dose Route Stop Time Status Admin Lisinopril 2.5 MG ONCE ONE 10/28 1130 DC 10/28 PO 10/28 1131 1130 Aspirin 324 MG ONCE ONE 10/28 1100 DC 10/28 PO 10/28 1101 1053 Nitroglycerin 1 IN ONCE ONE 10/28 1100 DC 10/28 TP 10/28 1101 1052 Sodium Chloride 10 ML PRN PRN 10/28 1100 AC IV 10/29 1049 Aspirin 0 .STK-MED ONE 10/28 1052 DC .ROUTE Nitroglycerin 0 .STK-MED ONE 10/28 1052 DC .ROUTE Orders Procedure Date/time Status Decision to admit 10/28 1159 Active ELECTROCARDIOGRAM REQUEST 10/28 1049 Active IV SALINE LOCK 10/28 1049 Active CBC WITH AUTO DIFF 10/28 1049 Complete CARDIAC ENZYMES 10/28 1049 Complete CHEM 12 PROFILE 10/28 1049 Complete 12 LEAD EKG-MU (INITIAL) 10/28 UNK Active CM/EKG CM/EKG EKG rate, NSR, rhythm, no evid. of ischemic chgs, no ectopy, normal QRS, normal LA, normal EKG (NSR 77 Q w ant) XRAY/CT/US XRAY/CT/US XRAY chest XR interpretation by reviewed by me Xray Results normal/NAD (COPD neg acute) Consult MD Physician Consult 1 Time Called 1156 Reason Pt. Condition Comments Lillian Agustin [employer]: ok to admit to Dr. Mora and please consult Dr. Roque/ Zackery Berkowitz with Cardiology. Physician Consult 2 Time Called 1158 Comments Zackery Berkowitz paged. Physician Consult 3 Time Called 1230 Reason Pt. Condition Comments Dr. MCKENNA has seen patient in the ED and will arrange for inpatient ECHO; meanwhile , we have admitted the patient and Dr. MCKENNA states that after serial cardiac enzymes are done as well as ECHO it would be reasonable to discharge the patient from the floor this evening at the PCP discretion; I called Lillian and updated her on this recommendation from our electronic equipment set up operator. Progress ED Progress Notes Date 10/28/17 Time 1201 Comment SBP 141, resting comfortably. Also states under a lot of stress as had a bad family event last night and he is upset about it. However, given his cardiac risk factors as well as presentation time frame, repeat serial enzymes and further evaluation are indicated. Departure Departure Time of Disposition 1158 Disposition Still a Patient Clinical Impression Primary Impression: Chest pain Qualifiers: Chest pain type: chest pain due to myocardial ischemia Ischemic chest pain type: unspecified angina pectoris type Qualified Code: I20.9 - Angina pectoris, unspecified Condition STABLE Referrals Lillian Agustin APRN (Family) ED Critical Care Critical Care No at 1231
--- NOTE | 2017-10-28 11:22 | Emergency Room Report ---
History of Present Illness Time Seen by [address] Presenting Problem in Triage Pt arrived:Walked Presenting Problem:PT WAS BEING SEEN AT HIS PCP WHEN HE STARTED HAVING CHEST PAIN/PRESSURE. PT ALSO HYPERTENSIVE. 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 N Clinical Suspician of Infection? N Mental Status: 1 - Regular (Normal Baseline) Sepsis Risk:Low Sepsis Risk Have you (or family members/close friends) recently traveled outside the [place]? N If Yes, where/when: Have you had exposure to infectious disease within the past month? N TB? Other? Specify: Patient did not have his antihypertensive meds today as was NPO for labs at [facility] [employer] office. He presented to [employer] [employer] office and when getting up on exam table had mild chest pain and was noted to be hypertensive. He was sent to the ED for further evaluation and management. Pain is exertional, 3/10, nonradiating, no acute SOB, reports some indigestion, no diaphoresis, no v/d, no new cough. Had a tracheostomy due to throat cancer in the past. He is verbal but nonvocal. ALLERGIES Coded Allergies: Penicillins (05/05/16) penicillin V (05/05/16) Home Medications Active Scripts Epinephrine (Epipen 2-Favio) 1 MG MR PRN PRN allergic reaction. #1 KIT Ref 1 Prov: 06/17/15 Reported Medications Levothyroxine Sodium (Synthroid 0.1MG) 0.1 MG PO DAILY INSUL REG 30%ISOPHAN 70% HUMAN (Humulin 70-30 Vial) 10 UNITS SC QHS Clonazepam (Clonazepam 0.5MG) 0.5 MG PO DAILY #45 Atorvastatin Calcium 10 MG PO QHS #30 Sertraline Hydrochloride (Sertraline 100MG) 100 MG PO DAILY #30 Lisinopril 2.5 MG PO DAILY #30 Metformin HCl (Metformin) 500 MG PO BID #60 History Medical History General CAD? No Angina: Yes [place]: Yes Hypertension? Yes Hyperlipidemia? No CHF? No DVT? No PE? No COPD? Yes Asthma? No Anemia? No GERD? No Gastric ulcers? No GI Bleed? No Hernia? Yes Thyroid Problems? No Hypothyroidism? No CVA? No Seizures? No Diabetes? Yes Insulin Dependent: Yes Insulin Pump: No Home FSBS? Yes Renal Insuffiency? No End Stage Renal Disease? No UTI? No Stones? No BPH? No GB Disease: No Nephritic Syndrome? No Asplenia? No Hepatitis? No Sickle Cell Disease? No Arthritis? No Migraines? No Cataracts? No Glaucoma? No MRSA? No HIV? No TB? No Anxiety? No Depression? No Cancer? 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 Immunization Hx DT/Tetanus Unknown Flu 2012-14FSN Pneumonia Received In Past Surgical Hx Previous Surgery?Y TUBES IN EARS TRACHEOSTOMY COLOSTOMY FEEDING TUBE PLACEMENT PORTACATH - REMOVED RECONSTRUCTION ON THROAT REVERSAL OF COLOSTOMY 31 TEETH EXTRACTED TRACH PLACED Family History Family Hx Diabetes Yes CAD Yes Hypertension Yes Hyperlipidemia Yes Cancer No TB No Social History Smoking Hx Smoker: Never Smoker Tobacco: No Alcohol Alcohol: No Review of Systems All Other Systems Reviewed and Negative Cardiovascular see HPI Gastrointestinal see HPI Psychiatric/Neurological anxiety (under increased stress) Physical Exam Vital Signs Vital Signs Date Time Temp Pulse Resp B/P Pulse O2 O2 Flow FiO2 Ox Delivery Rate 10/28 1159 84 16 141/99 98 10/28 1041 98.5 85 16 204/119 98 General Appearance normal appearance, WD/WN, no apparent distress Eye Exam - bilateral eye normal exam, bilateral eye PERRL, bilateral eye EOMI Ear, Nose, Throat hearing grossly normal (tracheostomy) Neck normal inspection (trach) Respiratory Status Yes: trachea midline, chest symmetrical, non tender chest. No: respiratory distress, tender on palpation, use of accessory muscles, pain on inspiration, pain on expiration, productive cough, non productive cough. Lung Sounds bilateral: normal breath sounds, lungs clear. Cardiovascular normal exam, regular rate/rhythm, no peripheral edema, no gallop, no JVD, no murmur, no rub, normal peripheral pulses Gastrointestinal normal bowel sounds, normal exam, non tender, soft, no organomegaly, no pulsatile mass, no guarding, no rebound Extremities non-tender, normal range of motion, normal inspection, normal capillary refill, no calf tenderness, no pedal edema Strength 5 Upper Ext (L), 5 Upper Ext (R), 5 Lower Ext (L), 5 Lower Ext (R) Neurologic alert, normal exam, no motor/sensory deficits, oriented x 3 Glascow Coma Scale Glascow Coma Scale Response Value EYE response: 4 Spontaneously 4 MOTOR response: 6 OBEYS 6 VERBAL response: 5 Oriented & Converses 5 Total 15 Skin intact, warm/dry, pallor Medical Decision Making LABS/Meds/Orders Pt receiving controlled substance in ED? No Results/Orders Laboratory Tests 10/28/17 1050: Sodium 139, Potassium 4.7, Chloride 104, Carbon Dioxide 28, BUN 17, Creatinine 1.1, Estimated Creat Clear 96, Estimated GFR (MDRD) 68, Glucose 156 H, Calcium 9.4, Total Bilirubin 0.5, AST 24, ALT 35, Alkaline Phosphatase 80, Creatine Kinase 115, CK-MB (CK-2) Rel Index 0.5, CK and CKMB Interp 0.6, Troponin I < 0.02, Total Protein 8.4 H, Albumin 4.1, Globulin 4.3 H, Albumin/Globulin Ratio 1.0 L, WBC 8.3, RBC 5.59, Hgb 15.3, Hct 47.5, MCV 85.1, RDW 14.1, Plt Count 470 H, MPV 6.8 L, Gran % 66.4, Gran # 5.5, Lymphocytes % 18.5, Monocytes % 8.1, Eosinophils % 6.1, Basophils % 0.8, Lymphocytes # 1.6, Monocytes # 0.7, Eosinophils # 0.5 H, Basophils # 0.1, PUBS MCHC 32.1, MCH 27.4 Current Medication Orders Sig/Yoli Start time Last Medication Dose Route Stop Time Status Admin Lisinopril 2.5 MG ONCE ONE 10/28 1130 DC 10/28 PO 10/28 1131 1130 Aspirin 324 MG ONCE ONE 10/28 1100 DC 10/28 PO 10/28 1101 1053 Nitroglycerin 1 IN ONCE ONE 10/28 1100 DC 10/28 TP 10/28 1101 1052 Sodium Chloride 10 ML PRN PRN 10/28 1100 AC IV 10/29 1049 Aspirin 0 .STK-MED ONE 10/28 1052 DC .ROUTE Nitroglycerin 0 .STK-MED ONE 10/28 1052 DC .ROUTE Orders Procedure Date/time Status Decision to admit 10/28 1159 Active ELECTROCARDIOGRAM REQUEST 10/28 1049 Active IV SALINE LOCK 10/28 1049 Active CBC WITH AUTO DIFF 10/28 1049 Complete CARDIAC ENZYMES 10/28 1049 Complete CHEM 12 PROFILE 10/28 1049 Complete 12 LEAD EKG-MU (INITIAL) 10/28 UNK Active CM/EKG CM/EKG EKG rate, NSR, rhythm, no evid. of ischemic chgs, no ectopy, normal QRS, normal [place], normal EKG (NSR 77 Q w ant) XRAY/CT/US XRAY/CT/US XRAY chest XR interpretation by reviewed by me Xray Results normal/NAD (COPD neg acute) Consult MD Physician Consult 1 Time Called 1156 Reason Pt. Condition Comments Lillian Agustin [employer]: ok to admit to Dr. Mora and please consult Dr. Roque/ Zackery Berkowitz with Cardiology. Physician Consult 2 Time Called 1158 Comments Zackery Berkowitz paged. Physician Consult 3 Time Called 1230 Reason Pt. Condition Comments Dr. MCKENNA has seen patient in the ED and will arrange for inpatient ECHO; meanwhile , we have admitted the patient and Dr. MCKENNA states that after serial cardiac enzymes are done as well as ECHO it would be reasonable to discharge the patient from the floor this evening at the PCP discretion; I called Lillian and updated her on this recommendation from our radiator specialist. Progress ED Progress Notes Date 10/28/17 Time 1201 Comment SBP 141, resting comfortably. Also states under a lot of stress as had a bad family event last night and he is upset about it. However, given his cardiac risk factors as well as presentation time frame, repeat serial enzymes and further evaluation are indicated. Departure Departure Time of Disposition 1158 Disposition Still a Patient Clinical Impression Primary Impression: Chest pain Qualifiers: Chest pain type: chest pain due to myocardial ischemia Ischemic chest pain type: unspecified angina pectoris type Qualified Code: I20.9 - Angina pectoris, unspecified Condition STABLE Referrals Lillian Agustin APRN (Family) ED Critical Care Critical Care No at 1231
[2017-10-28 11:32] LABS: BUN 17 mg/dL (7-18); GFR (ESTIMATED) 68 ML/MIN (>60)
--- NOTE | 2017-10-28 12:11 | RADIOLOGY REPORT PS360 ---
CHEST(2 VIEWS-NOT PORTABLE) HISTORY: CHEST PAIN ORDERING PHYSICIAN: Shirin Martinez MD PATIENT AGE: 62 years COMPARISON: 05/05/2016 FINDINGS: The cardiomediastinal silhouette and pulmonary vascularity are within normal limits. There is mild coarsening of the bronchovascular markings with hyperinflation suggesting COPD. No lobar consolidation or collapse.. No acute bony abnormalities. IMPRESSION: COPD, no change with finding
[2017-10-28 13:05] VITALS: BP 149/98
--- NOTE | 2017-10-28 13:06 | CONSULT NOTE ---
See Addendum Standard Demographics Patient Demo Date of Consultation: 10/28/17 Referring Provider: Anabella Mora MD Reason for Consultation: Chest pain PRIMARY DIAGNOSIS: Chest pain Problem list Problem list: 1. DM, treated for about 2 yrs 2. Question old CA, no follow up or evaluation per patient 3. S/p surgery, chemo and radiation for throat cancer, about 2008 A. Uses vocal assist device to speak 4. Remote tobacco use 5. HTN 6. Hyperlipidemia 7. Hiatal Hernia 8. hypothyroidism, on supplement History of present illness: History of present illness: 62 yo WM seen in ER for evaluation of chest pain. Difficult to interact with patient due to history of throat cancer s/p surgery with use of vocal assist device. Pt sent to ER for evaluation of chest pain that started today. He was at PCP office for testing and had not taken his BP med today. BP noted to be >200/ 100 mm Hg. In ER, was given his usual BP med along with NTG paste with improvement in BP and resolution of chest pain. He has some lingering "indigestion" symptoms which he states usually resolves with antacid use. His is present and helps with communication. EKG is sinus and unremarkable. Initial troponin is normal. Cardiology consulted for evaluation and recommendation. 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 Past Medical History: General: Hypertension Yes CVA No Seizures No TB No COPD Yes Asthma No Diabetes Yes Insulin Dependent Yes Insulin Pump No Angina Yes CA Yes Hyperlipidemia No Urinary Yes Cancer Yes Rheumatic H.D. No Ulcers Yes MRSA No GB Disease No Other HIATAL HERNIA Past Surgical HX: Previous Surgery?Y TUBES IN EARS TRACHEOSTOMY COLOSTOMY FEEDING TUBE PLACEMENT PORTACATH - REMOVED RECONSTRUCTION ON THROAT REVERSAL OF COLOSTOMY 31 TEETH EXTRACTED TRACH PLACED Allergies Coded Allergies: Penicillins (05/05/16) penicillin V (05/05/16) Home medications: Active Scripts Epinephrine (Epipen 2-Favio) 1 MG MR PRN PRN allergic reaction. #1 KIT Ref 1 Prov: 06/17/15 Reported Medications Levothyroxine Sodium (Synthroid 0.1MG) 0.1 MG PO DAILY INSUL REG 30%ISOPHAN 70% HUMAN (Humulin 70-30 Vial) 10 UNITS SC QHS Clonazepam (Clonazepam 0.5MG) 0.5 MG PO DAILY #45 Atorvastatin Calcium 10 MG PO QHS #30 Sertraline Hydrochloride (Sertraline 100MG) 100 MG PO DAILY #30 Lisinopril 2.5 MG PO DAILY #30 Metformin HCl (Metformin) 500 MG PO BID #60 Current Medications: Current Medications Clonazepam 0.5 MG DAILY PO (UNV) Levothyroxine Sodium 0.1 MG DAILY PO (UNV) Lisinopril 2.5 MG DAILY PO (UNV) Sertraline HCl 100 MG DAILY PO (UNV) Atorvastatin Calcium 10 MG QHS PO (UNV) Metformin HCl 500 MG BID PO (UNV) Diagnostic Test (Pha) 1 EACH W/MEALS&HS FS (UNV) Insulin Human [rDNA origin] SEE ADMIN CRITERIA FOR LOW INTENSITY SS W/MEALS&HS SC (UNV) Multi-Ingredient GI Drug 60 ML ONCE ONE PO Sodium Chloride 10 ML PRN PRN IV (UNV) Temazepam 15 MG QHSP PRN PO (UNV) Lisinopril 2.5 MG ONCE ONE PO (DC) Aspirin 324 MG ONCE ONE PO (DC) Nitroglycerin 1 IN ONCE ONE TP (DC) Sodium Chloride 10 ML PRN PRN IV Aspirin 0 .STK-MED ONE .ROUTE (DC) Nitroglycerin 0 .STK-MED ONE .ROUTE (DC) Immunization HX DT/Tetanus Unknown Flu 2012-FSN Pneumonia RECEIVED IN PAST Family history Family HX Family Hx Insignificant No Diabetes Yes CAD Yes Hypertension Yes Hyperlipidemia Yes Cancer No TB No Social Hx: Smoking HX Tobacco No Alcohol Alcohol: No Hx of Drug Use Drug Use? No Patien't marital status is Patient's support system is good Review of systems: Constitutional weakness. Respiratory SOB with excertion. Cardiovascular see HPI, chest pain Gastrointestinal/Abdominal see HPI Genitourinary No: no symptoms reported. Musculoskeletal muscle stiffness. Neurological No: no symptoms reported. Exam: Admission Vital Signs: 1ST Vital Signs Result Date Time Pulse Ox 98 12/ 1041 B/P 204/119 12/ 1041 Temp 98.5 12/ 1041 Pulse 85 12/ 1041 Resp 16 12/ 1041 Last Vital Signs: Vital Signs Result Date Time Pulse Ox 98 12 1247 B/P 138/91 12/ 1247 Temp 98.5 12/ 1247 Pulse 69 12/ 1247 Resp 16 12/01 1247 Exam General appearance: alert, awake, no acute distress Neck: no carotid bruit, no JVD Cardiovascular: regular rate & rhythm, no murmur Respiratory: clear to auscultation, diminished breath sounds ABD: soft, no tenderness Extremities: moves all, no peripheral edema Neuro: alert, intact, oriented Laboratory data: Laboratory Tests 10/28/17 1050: Sodium 139, Potassium 4.7, Chloride 104, Carbon Dioxide 28, BUN 17, Creatinine 1.1, Estimated Creat Clear 96, Estimated GFR (MDRD) 68, Glucose 156 H, Calcium 9.4, Total Bilirubin 0.5, AST 24, ALT 35, Alkaline Phosphatase 80, Creatine Kinase 115, CK-MB (CK-2) Rel Index 0.5, CK and CKMB Interp 0.6, Troponin I < 0.02, Total Protein 8.4 H, Albumin 4.1, Globulin 4.3 H, Albumin/Globulin Ratio 1.0 L, WBC 8.3, RBC 5.59, Hgb 15.3, Hct 47.5, MCV 85.1, RDW 14.1, Plt Count 470 H, MPV 6.8 L, Gran % 66.4, Gran # 5.5, Lymphocytes % 18.5, Monocytes % 8.1, Eosinophils % 6.1, Basophils % 0.8, Lymphocytes # 1.6, Monocytes # 0.7, Eosinophils # 0.5 H, Basophils # 0.1, PUBS MCHC 32.1, MCH 27.4 Plan Assessment: 1. Chest pain, likely related to elevated BP. Resolved with BP control. Initial troponin normal. Await second troponin. Will obtain echo also. IF both are normal, then consider discharge home with outpatient follow up in 1-2 wks. 2. HTN 3. DM 4. Throat Cancer, s/p surgery, chemo, radiation with reconstruction. Plan: Pt seen and examined with Dr. BALA Graham at 1305
[2017-10-28 15:41] VITALS: BP 96/55
[2017-10-28 19:34] VITALS: BP 103/52
[2017-10-28 20:24] VITALS: BP 103/52
--- NOTE | 2017-10-29 11:53 | Discharge Summary Standard ---
Demographics: Admit date: 10/28/17 Chief complaint: chest pain PRIMARY DIAGNOSIS: Chest pain Allergies: Coded Allergies: Penicillins (05/05/16) penicillin V (05/05/16) History of present illness: History of present illness: 62 yo WM seen in ER for evaluation of chest pain. Difficult to interact with patient due to history of throat cancer s/p surgery with use of vocal assist device. Pt sent to ER for evaluation of chest pain that started today. He was at PCP office for testing and had not taken his BP med today. BP noted to be >200/ 100 mm Hg. In ER, was given his usual BP med along with NTG paste with improvement in BP and resolution of chest pain. He has some lingering "indigestion" symptoms which he states usually resolves with antacid use. His is present and helps with communication. EKG is sinus and unremarkable. Initial troponin is normal. Cardiology consulted for evaluation and recommendation. 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 Past medical history: Family HX Diabetes Yes CAD Yes Hypertension Yes Hyperlipidemia Yes Cancer No TB No Immunization HX DT/Tetanus > 10 Years Ago Flu [id number] Pneumonia Received In Past TB Test in last year No General CAD? No Angina: Yes [place]: Yes Hypertension? Yes Hyperlipidemia? No CHF? No DVT? No PE? No COPD? Yes Asthma? No Anemia? No GERD? No Gastric ulcers? No GI Bleed? No Hernia? Yes Thyroid Problems? No Hypothyroidism? No CVA? No Seizures? No Diabetes? Yes Insulin Dependent: Yes Insulin Pump: No Home FSBS? Yes Renal Insuffiency? No UTI? No Stones? No BPH? No GB Disease: No Nephritic Syndrome? No Asplenia? No Hepatitis? No Sickle Cell Disease? No Arthritis? No Migraines? No Cataracts? No Glaucoma? No MRSA? No HIV? No TB? No Anxiety? No Depression? No Cancer? 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 Past Surgical HX Previous Surgery?Y TUBES IN EARS TRACHEOSTOMY COLOSTOMY FEEDING TUBE PLACEMENT PORTACATH - REMOVED RECONSTRUCTION ON THROAT REVERSAL OF COLOSTOMY 31 TEETH EXTRACTED TRACH PLACED Current home meds: Reported Medications Levothyroxine Sodium (Synthroid 0.1MG) 0.1 MG PO DAILY INSUL REG 30%ISOPHAN 70% HUMAN (Humulin 70-30 Vial) 10 UNITS SC QHS Clonazepam (Clonazepam 0.5MG) 0.5 MG PO DAILY #45 Atorvastatin Calcium 10 MG PO QHS #30 Sertraline Hydrochloride (Sertraline 100MG) 100 MG PO DAILY #30 Lisinopril 2.5 MG PO DAILY #30 Metformin HCl (Metformin) 500 MG PO BID #60 Social Hx: Smoking HX Tobacco No Are you/the child exposed to second-hand smoke: No Alcohol Alcohol: No Hx of Drug Use Drug Use? No Review of systems: Constitutional no symptoms reported. Respiratory no symptoms reported. Cardiovascular chest pain Gastrointestinal/Abdominal no symptoms reported Genitourinary no symptoms reported. Musculoskeletal no symptoms reported. Neurological Yes: no symptoms reported. Exam: Lab data for last 24 hours: Laboratory Tests 10/28/17 1855: Troponin I < 0.02 10/28/17 1652: POC Glucose 95 10/28/17 1615: Troponin I < 0.02 Vital Signs Date Time Temp Pulse Resp B/P Pulse O2 O2 Flow FiO2 Ox Delivery Rate 10/28 2024 98.3 67 18 103/52 10/28 1934 98.3 67 18 103/52 95 ROOM AIR 10/28 1541 98.2 66 20 96/55 96 ROOM AIR 10/28 1305 63 10/28 1305 98.6 63 16 149/98 10/28 1305 100 ROOM AIR 10/28 1305 98.6 63 16 149/98 100 ROOM AIR 10/28 1257 98.5 69 16 138/91 98 10/28 1247 98.5 69 16 138/91 98 10/28 1159 84 16 141/99 98 Laboratory Test 10/28/17 1050: Creatine Kinase 115, CK-MB (CK-2) Rel Index 0.5, CK and CKMB Interp 0.6 10/28/17 1855: Troponin I < 0.02 Current Medications Clonazepam 0.5 MG DAILY PO (DCD) Levothyroxine Sodium 0.1 MG DAILY PO (DCD) Lisinopril 2.5 MG DAILY PO (DCD) Sertraline HCl 100 MG DAILY PO (DCD) Atorvastatin Calcium 10 MG QHS PO (DCD) Diagnostic Test (Pha) 1 EACH W/MEALS&HS FS (DCD) Insulin Human [rDNA origin] SEE ADMIN CRITERIA FOR LOW INTENSITY SS W/MEALS&HS SC (DCD) Metformin HCl 500 MG BIDD PO (DCD) Multi-Ingredient GI Drug 60 ML ONCE ONE PO (DC) Sodium Chloride 10 ML PRN PRN IV (DCD) Temazepam 15 MG QHSP PRN PO (DCD) Sodium Chloride 10 ML PRN PRN IV (DCD) Laboratory Tests 10/28/17 1855: Troponin I < 0.02 10/28/17 1652: POC Glucose 95 10/28/17 1615: Troponin I < 0.02 Admission vital signs: 1ST Vital Signs Result Date Time Pulse Ox 98 10/28 1041 B/P 204/119 10/28 104 Temp 98.5 10/28 1041 Pulse 85 10/28 1041 Resp 16 10/28 1041 O2 Delivery ROOM AIR 10/28 1305 Exam General appearance: normal appearance, alert, active, awake, no acute distress Eyes: normal exam ENT: treacheostomy Neck: normal inspection, tracheostomy stoma in place Cardiovascular: normal exam, normal sinus rhythm Respiratory: normal exam, clear to auscultation, good air movement, no respiratory distress ABD: normal exam, soft Genitourinary: normal voiding & quantity, no dysuria Extremities: normal exam, moves all Musculoskeletal: normal exam Skin: normal exam, intact Neuro: normal exam, alert, intact Hospital Course Hospital Course: cardiolgy consult-, cardiac work up, echo 50%. chest pain improved with bp control, dc home will follow up with cardiolgyin 1 week. Medications Medications: Discharge meds are as noted. Follow up Follow up in office in: 7 DAYS with: Chano Roque MD Comment: minnie lawson at [phone]
--- NOTE | 2017-10-31 20:28 | RADIOLOGY REPORT PS360 ---
PROCEDURE: 2-D M-mode and color Doppler study INDICATIONS FOR THE TEST: Chest pain + COPD Heart Murmur Tobacco Smoking+ Palpitations Fatigue Syncope Edema Hypertension+Diabetes Mellitus+ Rheumatic Fever SOB RYAN Obesity Hyperlipidemia+ Family History HD Additional History SP CHEMO, RAD, THROAT CA, TRACH PATIENT INFORMATION HEIGHT: 69 WEIGHT:231 GENDER: Male B/P:138/ 2-D/M-MODE INTERPRETATION: 2-D MEASUREMENTS OBSERVED VALUES IN CMS Right Ventricular Dimension (RVDd) 3.1 Interventricular Septum (Thickness)(IVsd) 1.6 Left Ventricular Internal Dimensions(LVIDd) 3.5 Left Ventricular Posterior Wall (Thickness)(LVPWd) 1.6 Aortic Root 3.4 Aortic Cusp Separation 2.0 Left Atrial Dimensions (LAD) 3.7 2D 1. Left atrium is mildly enlarged, left ventricle is normal size, mild concentric left ventricular hypertrophy, visually estimated ejection fraction 55% with no obvious segmental wall motion abnormality. 2. The right atrium and right ventricle are normal size and contractility. 3. The aortic valve is thickened and calcified leaflet can't display mobility. 4. The mitral and tricuspid valve leaflets are minimally thickened. 5. The pulmonic valve is poorly visualized. 6. No significant pericardial effusion noted. DOPPLER INTERROGATION: Doppler interrogation of the aortic, mitral and tricuspid valvular presence of mild mitral and tricuspid regurgitation, tricuspid regurgitant jet velocity is insufficient for calculation of the right ventricular systolic pressure, grade 1 diastolic dysfunction seen without tissue Doppler evidence of raised left atrial pressure. CONCLUSION: 1. Mildly enlarged left atrium, normal left ventricular size, mild concentric left ventricular hypertrophy, visually estimated ejection fraction 55% with no obvious regional wall motion abnormality, grade 1 diastolic dysfunction seen without tissue Doppler evidence of raised left atrial pressure. 2. Mild mitral and tricuspid regurgitation. 3. Thickened and calcified aortic valve without aortic stenosis aortic insufficiency. 4. No significant pericardial effusion noted.
== END 2017-10-28 20:49 | disposition home or self-care (01) ==
LOC: ER 10:40 → 2ND 12:00
PROVIDERS: Emergency Medicine
DX: R07.9 Chest pain, unspecified (principal); E11.9 Type 2 diabetes mellitus without complications; Z85.818 Personal history of malignant neoplasm of other sites of lip, oral cavity, and pharynx; Z92.21 Personal history of antineoplastic chemotherapy; Z92.3 Personal history of irradiation; I10 Essential (primary) hypertension; E78.5 Hyperlipidemia, unspecified; E03.9 Hypothyroidism, unspecified; J44.9 Chronic obstructive pulmonary disease, unspecified; I25.2 Old myocardial infarction; Z88.0 Allergy status to penicillin; Z79.4 Long term (current) use of insulin; Z79.899 Other long term (current) drug therapy; Z79.82 Long term (current) use of aspirin; Z83.3 Family history of diabetes mellitus; Z82.49 Family history of ischemic heart disease and other diseases of the circulatory system; Z83.49 Family history of other endocrine, nutritional and metabolic diseases
CPT/HCPCS: G0378